=== PATIENT | male | born 1960 | race Caucasian/White ===

== ENCOUNTER 2016-12-01 04:52 | Emergency (ER) | payer OTHER ==
[~2016-12-01] VITALS: Ht 182.9 cm; Wt 127.0 kg
[~2016-12-01 04:52] MED LIST: ARIP30TA PO; CLOP75TA2 PO; FLUO-120 PO; GABA300C PO; GLIP10TA11 PO; HYDR1TAB4 PO; LISI20TA PO; METF1000 PO; SIMV40TA2 PO
--- NOTE | 2016-12-01 05:11 | NUR ---
PT PRESENTED TO THE ER WITH A C/O NEEDING HELP. PT APPARENTLY WENT TO [facility] AND WAS TOLD THAT THERE WAS NO BED AVAILABLE. PT DENIES SI AND HI. PT IS CURRENTLY TEXTING AND APPEARS AGGITATED. DR. BIRGGS IS AT THE BEDSIDE. PT REFUSED A BREATHING TX AND ANTI-PSYCHOTIC MEDICATION FROM DR. BRIGGS. PT HAS WHEEZES BILATERALLY AND IS A SMOKER. PT IS REFUSING BEING PUT ON THE MONITOR AND CONTINUOUS PULSE OX. PT STATED: "I'M TRYING TO TEXT. I DON'T BOTHER YOU WHEN YOU ARE TRYING TO TEXT." INDUSTRIAL LABORER IS AT THE BEDSIDE FOR BLOOD DRAW. PT STATED THAT HE IS UNABLE TO GIVE A URINE SAMPLE AT THIS TIME. DR. BRIGGS IS AWARE.
--- NOTE | 2016-12-01 05:30 | NUR ---
BLOOD DRAW IN PROGRESS.
[2016-12-01 05:35] LABS: BASOPHILS # (AUTO) 0.1 /CMM (0.0-0.2); BASOPHILS % (AUTO) 0.4 % (0.0-2.0); EOSINOPHILS # (AUTO) 0.1 /CMM (0.0-0.7); EOSINOPHILS % (AUTO) 0.9 % (0.0-6.0); HEMATOCRIT 55 % (39-51); HEMOGLOBIN 18.1 g/dL (13.5-17.5); LYMPHOCYTES # (AUTO) 3.1 /CMM (0.8-4.8); LYMPHOCYTES % (AUTO) 23.1 % (20.0-44.0); MEAN CORPUSCULAR HEMOGLOBIN 30 PG (26.0-33.0); MEAN CORPUSCULAR HGB CONC 33 g/dl (31.0-36.0); MEAN CORPUSCULAR VOLUME 91 fL (80-96); MONOCYTES % (AUTO) 7.1 % (2.0-12.0); NEUTROPHILS # (AUTO) 9.3 /CMM (1.8-8.9); NEUTROPHILS % (AUTO) 68.5 % (43.0-81.0); PLATELET COUNT (AUTO) 212 /CMM (150-450); RDW COEFFICIENT OF VARIATION 13.9 (11.5-15.0); RED BLOOD CELL COUNT(AUTO) 5.98 MIL/uL (4.5-6.0); WHITE BLOOD COUNT (AUTO) 13.6 K/uL (4.3-11.0)
--- NOTE | 2016-12-01 05:35 | NUR ---
EKG IN PROGRESS.
--- NOTE | 2016-12-01 05:40 | NUR ---
XRAY IS AT THE BEDSIDE.
[2016-12-01 05:47] LABS: CARBON DIOXIDE 32 mmol/L (21-32); CHLORIDE 100 mmol/L (98-107); CREATININE 1.1 mg/dL (0.6-1.3); GLUCOSE 334 mg/dL (74-106); POTASSIUM 4.3 mmol/L (3.5-5.1); SODIUM SERUM 135 mmol/L (136-145); UREA NITROGEN, BLOOD 13 mg/dL (7-18)
[2016-12-01 06:06] LABS: THYROID STIMULATING HORMONE 3.476 uIU/mL (0.358-3.74)
[2016-12-01 06:07] LABS: TROPONIN I < 0.017 ng/mL (0.00-0.056)
[2016-12-01 06:15] LABS: ALANINE AMINOTRANSFERASE 26 U/L (12-78); ALCOHOL, BLOOD < 3 mg/dL (0-0); ALKALINE PHOSPHATASE 113 U/L (46-116); ASPARTATE AMINOTRANSFERASE 17 U/L (15-37); B-TYPE NATRIURETIC PEPTIDE 74 PG/ML (0-125); BILIRUBIN,DIRECT 0.1 mg/dL (0.0-0.2); BILIRUBIN,TOTAL 0.6 mg/dL (0.2-1.0); SALICYLATE 4.6 mg/dL (2.8-20.0); TOTAL PROTEIN, SERUM 7.3 g/dL (6.4-8.2)
--- NOTE | 2016-12-01 06:15 | NUR ---
PT WENT OUTSIDE TO SMOKE. ISREAL HASSAN/CHG IS AWARE.
[2016-12-01 06:16] LABS: ACETAMINOPHEN 0 ug/ml (10-30)
--- NOTE | 2016-12-01 06:48 | NUR ---
PT IS MEDICALLY CLEARED PER DR. AVALOS. CALLED ISREAL KIRBY/HOME AND FAMILY LIVING PROFESSOR FOR EVAL. SHE WILL BE IN SHORTLY.
--- NOTE | 2016-12-01 06:48 | NUR ---
PT IS BACK IN BED #9. PT STATED: "WHAT ARE THE TEST RESULTS, IT DOESN'T TAKE THIS LONG FOR THE LABS TO RESULT." PT WAS TOLD THAT EVERYTHING RESULTED AND THE RUBBER MOLD MAKER WAS COMING TO EVALUATE HIM. PT STATED: "I'M MAKING A CALL".
--- NOTE | 2016-12-01 06:51 | NUR ---
PT APPEARS RESTLESS AND AGGITATED. PT WALKED OUTSIDE OUTSIDE. WHEN ASKED WHERE HE WAS GOING PT STATED: "I'M GOING OUTSIDE TO MAKE A PHONE CALL. HE INTERRUPTED ME AND I'M GOING OUT. OPEN THE DOOR."
--- NOTE | 2016-12-01 07:13 | NUR ---
PT RETURNED TO BED #9.
--- NOTE | 2016-12-01 07:20 | NUR ---
REPORT GIVEN TO ISREAL REDDY FOR MILLI.
--- NOTE | 2016-12-01 07:50 | NUR ---
CALLED FOR FOOD TRAY. PROVIDED PT WITH WATER PER REQUEST.
--- NOTE | 2016-12-01 09:06 | NUR ---
[employer], INSPECTOR [employer] INSTRUMENT ETA=1hr
[2016-12-01] MEDS ORDERED: glipiZIDE 10 MG TABLET PO ONE (09:30)
--- NOTE | 2016-12-01 09:45 | NUR ---
PT MEDICATED ORDERED.
[2016-12-01] MEDS ORDERED: glipiZIDE 10 MG TABLET ONE (09:47)
--- NOTE | 2016-12-01 10:20 | NUR ---
INA JARRELL LCSW AT BS FOR YOLANDA CLEANING.
--- NOTE | 2016-12-01 12:30 | NUR ---
PT AWAKE, COOPERATIVE AND CALM, WALKING AROUND THE BS.
[2016-12-01] MEDS ORDERED: OLANZAPINE 5 MG/TAB.RAPDIS PO ONE (14:00)
--- NOTE | 2016-12-01 14:45 | NUR ---
Patient is resting comfortably in bed with eyes closed. Easily aroused. VSS
[2016-12-01] MEDS ORDERED: OLANZAPINE 5 MG/TAB.RAPDIS ONE (15:59)
--- NOTE | 2016-12-01 17:43 | NUR ---
INA Fernandez LCSW AT FOR PSYCH RE-EVALUATION.
--- NOTE | 2016-12-01 17:50 | NUR ---
5150 HOLD DISCONTINUED BY INA JARRELL LCSW. MADE AWARE.
--- NOTE | 2016-12-01 18:06 | NUR ---
Patient discharged to home in stable condition. Written and verbal after care instructions given. Patient verbalizes understanding of instruction.
[2016-12-01 18:08] VITALS: BP 128/75
== END 2016-12-01 18:09 | disposition home or self-care (01) ==
LOC: ER 04:52
DX: J44.1 Chronic obstructive pulmonary disease with (acute) exacerbation (principal); E11.65 Type 2 diabetes mellitus with hyperglycemia; F20.9 Schizophrenia, unspecified; K21.9 Gastro-esophageal reflux disease without esophagitis; I10 Essential (primary) hypertension; F31.9 Bipolar disorder, unspecified; F17.200 Nicotine dependence, unspecified, uncomplicated; Z88.0 Allergy status to penicillin
CPT/HCPCS: 36415; 71010-TC; 80048-TC; 80076-TC; 80305; 82962-TC; 83880; 84443-TC; 84484-TC; 85025-TC; A4606; G0480; Z7610